=== PATIENT | male | born 1955 | race Caucasian/White ===

== ENCOUNTER 2021-05-07 17:03 | Outpatient (CLI) | payer MEDICARE ==
--- NOTE | 2021-05-08 00:37 | XRAY Report ---
PROCEDURE: Foot 3 View LT INDICATIONS: PLANTAR FASCIITIS TECHNIQUE: 3 views of the foot were acquired. COMPARISON: None. FINDINGS: Bones: No acute fractures or dislocations. No suspicious bony lesions. Mild hallux valgus. Mild deg enerative changes are seen in the first metatarsophalangeal joint. Scattered degenerative changes are seen at the interphalangeal joints of the toes. There is a small plantar calcaneal spur. Soft tissues: No suspicious soft tissue calcification. IMPRESSION: 1.No acute osseous abnormality. If symptoms persist or there is continued clinical concern, further e valuation with MRI or CT may be helpful. 2.Small plantar calcaneal enthesophyte. 3.Mild hallux valgus and mild degenerative changes of the first metatarsophalangeal joint. Reviewed by: Elie Lynn MD on 05/08/2021 12:37 AM PST Approved by: Elie Lynn MD on 05/08/2021 12:37 AM [facility] Station ID: [id number]
== END 2021-05-07 23:59 | disposition home or self-care (01) ==
LOC: DI.N 17:03
PROVIDERS: ATTEND Family Medicine
DX: M72.2 Plantar fascial fibromatosis (principal); M77.32 Calcaneal spur, left foot; M20.12 Hallux valgus (acquired), left foot; M19.072 Primary osteoarthritis, left ankle and foot